=== PATIENT | male | born 1985 | race Caucasian/White ===

== ENCOUNTER 2021-01-25 10:21 | Outpatient (CLI) | payer OTHER, SELFPAY ==
--- NOTE | ~2021-01-25 | XR_ITS ---
XR chest 2V DATE: 01/25/2021 10:44 INDICATION: Chest pain, fluttering. Intermittent shortness of breath. TECHNIQUE: 2 views COMPARISON: 11/26/2013 2 view chest FINDINGS: Normal heart size. No hilar or mediastinal enlargement. No pulmonary infiltrate or consolid ation, pleural effusion or pulmonary vascular congestion or pneumothorax. IMPRESSION: No active cardiopulmonary disease Reviewed, dictated and finalized at location A.
== END 2021-01-25 10:22 | disposition home or self-care (01) ==
LOC: CHSLAB 10:26
PROVIDERS: PCP Internal Medicine; Visit Provider Internal Medicine
DX: R07.9 Chest pain, unspecified (principal)
CPT/HCPCS: 71046

== ENCOUNTER 2021-01-26 08:20 | Outpatient (CLI) | payer OTHER, SELFPAY ==
--- NOTE | 2021-02-26 07:10 | WPDHOLTEREM ---
Holter/Event Monitor Holter/Event Monitor Date of procedure: 02/26/21 Procedure Type: event monitor Indications: Palpitations Conclusion: 1. 23 days event monitor between 01/26/21-02/24/21. There are 28 available transmissions for analysis. 2. Underlying rhythm is sinus rhythm. HR range 50-167 bpm; average HR 85 bpm. 3. There are occasional premature supraventricular complexes wit total burden of 1%. No supraventricular tachycardia. 4. There are occasional premature ventricular complexes with total burden of 1%. No ventricular tachycardia. 5. No significant pauses greater than 2 seconds. 6. Patient reports 15 episodes of symptoms of chest pain, lightheadedness and symptoms other than listed which demonstrate sinus rhythm, HR range 58-133 bpm and 1 PVC.
== END 2021-01-26 08:21 | disposition home or self-care (01) ==
LOC: CHSCARD 08:22
PROVIDERS: PCP Internal Medicine; Visit Provider Internal Medicine
DX: R07.9 Chest pain, unspecified (principal); R00.2 Palpitations; R94.31 Abnormal electrocardiogram [ECG] [EKG]
CPT/HCPCS: 93270

== ENCOUNTER 2021-01-27 12:29 | Outpatient (CLI) | payer OTHER, SELFPAY ==
--- NOTE | 2021-01-27 12:41 | ECHO_ITS ---
Patient Info Name: Ulises Modi Age: 35 years : 1985 Gender: Male Ht: 69 in Wt: 271 lbs BSA: 2.50 m2 HR: 74 bpm BP: 132 / 82 mmHg Heart Rhythm: Sinus Rhythm Technical Quality: Poor Exam Date: 01/27/2021 12:35 PM Exam Location: [facility] Patient Status: Outpatient Admit Date: 01/27/2021 Staff Ordering Physician: Idania Petit MD Post Graduate Intern: Dang Orr RDCS Attending Provider: Idania Petit MD Referring Physician: aDmaso HANKINS; Exam Type: CA echo dop color flow w con Study Info Indications R00.2 - Palpitations R94.31 - Abnormal electrocardiogram ECG EKG R07.9 - Chest pain, unspecified Complete two-dimensional, color flow and Doppler transthoracic echocardiogram is performed with contrast to opacify the left ventricle and to improve the deliniation of the left ventricle endocardial borders. Strain analysis performed. Contrast/Agitated Saline Contrast/Ag. Saline: Definity Amount: 4.00 ml New IV Access: Right Site Condition: No extravasation, Site dressing applied and IV removed Reason for Poor Study: patient body habitus History/Risk Factors Hypertension: Yes Dyslipidemia: No Congenital Heart Disease (CHD): No Peripheral Arterial Disease (PAD): No Myocardial Infarction (ND): No Chronic Lung Disease: No Obesity: Yes Renal Disease: No Congestive Heart Failure (CHF): No Cardiomyopathy/LV Systolic Dysfunction: No Diabetes Mellitus: No COPD: No Tobacco Use: Former Cerebrovascular Disease: No Family History: Coronary Artery Disease Deep Vein Thrombosis (DVT): None Dialysis: None Frailty Scale (CSHA): 2: Well Cardiac Arrest: No Summary 1. Left ventricular chamber dimension is normal. 2. Definity contrast administered improved wall motion interpretation. 3. Left ventricular systolic function is normal, estimated at 55-60%. 4. The left ventricular diastolic function is grade I diastolic dysfunction. 5. E/e' 11 is mildly elevated. 6. There is trace mitral valve regurgitation. 7. There is trace tricuspid valve regurgitation. 8. No pulmonary hypertension, estimated pulmonary arterial systolic pressure is 31 mmHg. Left Ventricle E/e' 11 is mildly elevated. Definity contrast administered improved wall motion interpretation. Left ventricular chamber dimension is normal. Left ventricular systolic function is normal, estimated at 55-60%. The left ventricular diastolic function is grade I diastolic dysfunction. Right Ventricle Right ventricular systolic function is normal and with normal TAPSE 1.8 cm. Right ventricular chamber dimension is normal. Left Atria Left atrial chamber dimension is normal. Right Atria Right atrial chamber dimension is normal. Aortic Valve The aortic valve is trileaflet. There is no aortic valve stenosis. There is no aortic valve regurgitation. Pulmonic Valve There is no pulmonic regurgitation. Mitral Valve There is no mitral valve stenosis. There is trace mitral valve regurgitation. Tricuspid Valve There is trace tricuspid valve regurgitation. No pulmonary hypertension, estimated pulmonary arterial systolic pressure is 31 mmHg. Pericardium/Pleural There is no pericardial effusion. Inferior Vena Cava Normal inferior vena cava with >50% collapse upon inspiration consistent with normal right atrial pressure, 5 mmHg. Aorta
== END 2021-01-27 12:30 | disposition home or self-care (01) ==
LOC: CHSIMG 12:32
PROVIDERS: PCP Internal Medicine; Visit Provider Internal Medicine
DX: R19.7 Diarrhea, unspecified (principal); R07.9 Chest pain, unspecified; R94.31 Abnormal electrocardiogram [ECG] [EKG]; R00.2 Palpitations
CPT/HCPCS: 87324; C8929

== ENCOUNTER 2021-07-31 08:00 | Outpatient (CLI) | payer OTHER, SELFPAY ==
--- NOTE | ~2021-07-31 | MR_ITS ---
EXAMINATION: MR brain/brain stem wo/w con EXAM DATE: 07/31/2021 08:51 INDICATION: Headaches for 8 months. TECHNIQUE: Magnetic resonance imaging (MRI) of the brain/brain stem obtained without contrast. Sagit veronica T1, axial diffusion, gradient echo (T2*), T1, T2, FLAIR sequences obtained. Patient was then inj ected with 10 cc intravenous Multihance contrast. Axial and coronal postcontrast T1 weighted sequence s obtained. There is no prior study for comparison. FINDINGS: There are no areas of restricted diffusion to suggest acute infarction. There is no acute hemorrhage seen on the T2*, a hemosiderin sensitive sequence. No intraparenchymal brain mass. The ve ntricles are normal in size. There are no extra-axial collections. Flow voids are seen in the cereb ral arteries on the T2-weighted sequences consistent with their expected patency. The orbits are unr emarkable. Soft tissue is unremarkable. There are no areas of abnormal enhancement on the postcont rast images. IMPRESSION: 1. Normal brain MRI examination. Reviewed, dictated and finalized at location A. TO PICKER
== END 2021-07-31 08:01 | disposition home or self-care (01) ==
PROVIDERS: PCP Internal Medicine; Visit Provider Internal Medicine
DX: R51.9 Headache, unspecified (principal)
CPT/HCPCS: 70553; A9577

== ENCOUNTER 2021-09-13 16:23 | Outpatient (CLI) | payer OTHER, SELFPAY ==
[2021-09-13 18:52] LABS: SARS-CoV-2 Ag Negative (Negative)
[2021-09-13 18:53] LABS: Influenza Control Valid (Valid)
== END 2021-09-13 16:24 | disposition home or self-care (01) ==
LOC: CHSLAB 16:47
PROVIDERS: PCP Internal Medicine; Visit Provider Internal Medicine
DX: Z20.822 Contact with and (suspected) exposure to COVID-19 (principal)
CPT/HCPCS: 87081; 87426; 87804; 87880; C9803